=== PATIENT | female | born 1985 | race Caucasian/White ===

== ENCOUNTER → 2016-03-19 | Outpatient (CLI) | payer OTHER ==
[~2016-03-19] MED LIST: ASPI325T28 PO; DOCU100C PO; NEXI40CA PO; PERC5TAB6 PO; TOPA100T8 PO; TYLE325T5 PO; WELL75TA PO
--- NOTE | 2016-03-19 17:18 | REP ---
KUB, TWO VIEWS: HISTORY: Low back pain. Air is present in small and large intestine. There are no air fluid levels or dilated loops of intestine. There is no pneumoperitoneum. A mild amount of stool is present in the colon. There is partial sacralization of the L5 vertebral body. IMPRESSION: 1. Nonspecific bowel gas pattern. 2. There is a mild amount of stool in the colon. Signed by Enrico Sevilla MD 03/20/2016 08:24 A
== END ==
LOC: M LRY 16:35
PROVIDERS: ATTEND Physician Assistant
DX: R10.9 Unspecified abdominal pain (principal)

== ENCOUNTER → 2016-03-19 | Outpatient (REF) | payer OTHER | LOC: M SFHCLERA 17:07 | PROVIDERS: ATTEND Physician Assistant | DX: R10.9 Unspecified abdominal pain (principal) ==

== ENCOUNTER → 2016-04-08 | Outpatient (CLI) | payer OTHER ==
[~2016-04-08] MED LIST changes: +E-Z PAQUE 60% w/v SUSP 355ML BOTTLE As Ordered ONE; +E-Z-GAS II EFFERVESCENT PACKET (SODIUM BICARB./CITRIC ACID/SIMETHICONE) As Ordered ONE; +E-Z-HD 98% w/w 340GM SUSP BTL As Ordered ONE
--- NOTE | 2016-04-09 07:11 | REP ---
UPPER GI, AIR CONTRAST, AND SMALL BOWEL FOLLOW THROUGH: The procedure was performed under the direct supervision of Dr. Coronel. The images were reviewed with Dr. Coronel. A safety trainer film shows no organomegaly or pathological masses. The intestinal gas pattern is nonspecific. There is a transitional lumbosacral junction. Liquid barium and gas producing granules were given in the erect position as well as liquid barium in the prone oblique position in order to perform a double contrast upper GI examination. Additionally, liquid barium was given at the end of the examination in order to perform a small bowel follow through. The oral and pharyngeal stages of deglutition are unremarkable. Esophageal transport is prompt and efficient and there is no esophagitis, stricture, mucosal ring or hiatal hernia. There is full column gastroesophageal reflux demonstrated to the level of the thoracic inlet. The stomach hernandez are normally outlined. The rugal folds are smooth and regular. There is no gastritis, neoplasm or ulcer disease. The duodenal hernandez are normally outlined. The mucosal folds are smooth and regular. There is no C-loop identified. All of the small bowel lies on the right side within the abdomen which likely represents intestinal non-rotation. The barium column was followed through the small bowel to the level of the terminal ileum. Small bowel transit time is approximately 1 hour. Images demonstrate all of the small bowel to lie on the right side of the abdomen with the large bowel on the left side of the abdomen. The cecum lies in the left lower quadrant. These findings likely represent intestinal non-rotation. During palpation, all loops are freely movable and pliable. There are no fixed or angulated loops. Small bowel mucosal pattern is normal in caliber. There is no transition to suggest a partial small bowel obstruction. Spot filming of the terminal ileum shows it to be unremarkable. IMPRESSION: 1. There is full column gastroesophageal reflux demonstrated to the level of the thoracic inlet. 2. All of the small bowel lies on the right side of the abdomen and the large bowel lies on the left side of the abdomen. These findings are consistent with intestinal non-rotation. The small bowel is otherwise unremarkable. 2 minutes and 13 seconds of fluoroscopy time was utilized for this procedure. Reviewed by REYNALDO Myrick 04/09/2016 04:09 PEdited and Signed by Donis Coronel MD 04/09/2016 05:02 P
== END ==
LOC: M RAD 08:34
PROVIDERS: ATTEND Surgery
DX: R10.9 Unspecified abdominal pain (principal); R19.7 Diarrhea, unspecified

== ENCOUNTER → 2016-04-16 | Outpatient (CLI) | payer OTHER ==
[~2016-04-16] MED LIST changes: +ADDE30CA PO; +ADDE5CAP PO; -E-Z PAQUE 60% w/v SUSP 355ML BOTTLE As Ordered ONE; -E-Z-GAS II EFFERVESCENT PACKET (SODIUM BICARB./CITRIC ACID/SIMETHICONE) As Ordered ONE; -E-Z-HD 98% w/w 340GM SUSP BTL As Ordered ONE; +LIDOCAINE 2% INJ 100 MG/5 ML SDV (FOR ANES.) As Ordered ONE; +NAPR250T2 PO; +NS 1,000 ML IV SCH; +PROPOFOL 200 MG/20 ML VIAL As Ordered ONE
--- NOTE | 2016-04-16 10:38 | ROOR ---
Patient Name: Nevaeh Peng Procedure Date: 04/16/2016 10:19 AM Date of : 1985 Age: 30 Room: [facility] Gender: Female Note Status: Finalized Procedure: Upper GI endoscopy Indications: Epigastric abdominal pain, Nausea with vomiting Providers: Dutch Colón Jr, MD Referring MD: BENNETT GUAJARDO MD Requesting Provider: Medicines: Propofol per Anesthesia Complications: No immediate complications. Procedure: Pre-Anesthesia Assessment: - Prior to the procedure, a History and Physical was performed, and patient medications and allergies were reviewed. The patient is competent. The risks and benefits of the procedure and the sedation options and risks were discussed with the patient. All questions were answered and informed consent was obtained. Patient identification and proposed procedure were verified by the physician and the nurse in the pre-procedure area and in the procedure room. Mental Status Examination: alert and oriented. Airway Examination: normal oropharyngeal airway and neck mobility. Respiratory Examination: clear to auscultation. CV Examination: normal. ASA Grade Assessment: II - A patient with mild systemic disease. After reviewing the risks and benefits, the patient was deemed in satisfactory condition to undergo the procedure. The anesthesia plan was to use moderate sedation / analgesia (conscious sedation). Immediately prior to administration of medications, the patient was re-assessed for adequacy to receive sedatives. The heart rate, respiratory rate, oxygen saturations, blood pressure, adequacy of pulmonary ventilation, and response to care were monitored throughout the procedure. The physical status of the patient was re-assessed after the procedure. The Endoscope was introduced through the mouth, and advanced to the second part of duodenum. The upper GI endoscopy was accomplished without difficulty. The patient tolerated the procedure well. Findings: The upper third of the esophagus, middle third of the esophagus and lower third of the esophagus were normal. A small hiatal hernia was present. Diffuse moderate inflammation characterized by congestion (edema), erythema, friability and granularity was found in the gastric fundus, in the gastric body, in the gastric antrum and in the prepyloric region of the stomach. Biopsies were taken with a cold forceps for histology. Diffuse mildly erythematous mucosa without bleeding was found in the gastric body. The duodenal bulb, first portion of the duodenum and second portion of the duodenum were normal. Biopsies for histology were taken with a cold forceps for evaluation of celiac disease. Impression: - Normal upper third of esophagus, middle third of esophagus and lower third of esophagus. - Small hiatal hernia. - Gastritis. Biopsied. - Erythematous mucosa in the gastric body. - Normal duodenal bulb, first portion of the duodenum and second portion of the duodenum. Biopsied. Recommendation: - Discharge patient to home (ambulatory). - Return to my office in 2 weeks. Dutch Colón MD Dutch Colón Jr, MD 04/16/2016 10:38:04 AM This report has been signed electronically. Number of Addenda: 0 Note Initiated On: 04/16/2016 10:19 AM Estimated Blood Loss: Estimated blood loss: none.
--- NOTE | 2016-04-16 10:58 | ROOR ---
Patient Name: Nevaeh Peng Procedure Date: 04/16/2016 10:20 AM Date of : 1985 Age: 30 Room: [facility] Gender: Female Note Status: Finalized Procedure: Colonoscopy Indications: Generalized abdominal pain, Chronic diarrhea Providers: Dutch Colón Jr, MD Referring MD: BENNETT GUAJARDO MD Requesting Provider: Medicines: Propofol per Anesthesia Complications: No immediate complications. Procedure: Pre-Anesthesia Assessment: - Prior to the procedure, a History and Physical was performed, and patient medications and allergies were reviewed. The patient is competent. The risks and benefits of the procedure and the sedation options and risks were discussed with the patient. All questions were answered and informed consent was obtained. Patient identification and proposed procedure were verified by the physician and the nurse in the pre-procedure area and in the procedure room. Mental Status Examination: alert and oriented. Airway Examination: normal oropharyngeal airway and neck mobility. Respiratory Examination: clear to auscultation. CV Examination: normal. ASA Grade Assessment: II - A patient with mild systemic disease. After reviewing the risks and benefits, the patient was deemed in satisfactory condition to undergo the procedure. The anesthesia plan was to use moderate sedation / analgesia (conscious sedation). Immediately prior to administration of medications, the patient was re-assessed for adequacy to receive sedatives. The heart rate, respiratory rate, oxygen saturations, blood pressure, adequacy of pulmonary ventilation, and response to care were monitored throughout the procedure. The physical status of the patient was re-assessed after the procedure. The Colonoscope was introduced through the anus and advanced to the terminal ileum. The colonoscopy was performed without difficulty. The patient tolerated the procedure well. The quality of the bowel preparation was adequate and excellent. Findings: The perianal and digital rectal examinations were normal. Pertinent negatives include normal sphincter tone, no palpable rectal lesions and no anal lesion or abnormality was detected. The rectum, recto-sigmoid colon, sigmoid colon, descending colon, transverse colon, ascending colon, cecum, appendiceal orifice and ileocecal valve appeared normal. Biopsies for histology were taken with a cold forceps from the right colon, transverse colon, descending colon and sigmoid colon for evaluation of microscopic colitis. The ileum appeared normal. Biopsies were taken with a cold forceps for histology. Impression: - The rectum, recto-sigmoid colon, sigmoid colon, descending colon, transverse colon, ascending colon, cecum, appendiceal orifice and ileocecal valve are normal. Biopsied. - The terminal ileum is normal. Biopsied. Recommendation: - Discharge patient to home (ambulatory). - Return to my office in 2 weeks. Dutch Colón MD Dutch Colón Jr, MD 04/16/2016 10:58:11 AM This report has been signed electronically. Number of Addenda: 0 Note Initiated On: 04/16/2016 10:20 AM Estimated Blood Loss: Estimated blood loss: none.
[2016-04-16 11:25] VITALS: BP 117/68
== END | disposition home or self-care (01) ==
LOC: M OPP 09:41
PROVIDERS: ATTEND Surgery
DX: R10.84 Generalized abdominal pain (principal); R19.7 Diarrhea, unspecified; R10.11 Right upper quadrant pain; R11.2 Nausea with vomiting, unspecified; K31.89 Other diseases of stomach and duodenum; K29.70 Gastritis, unspecified, without bleeding; K44.9 Diaphragmatic hernia without obstruction or gangrene; G43.909 Migraine, unspecified, not intractable, without status migrainosus; Z79.899 Other long term (current) drug therapy

== ENCOUNTER → 2020-06-15 | Outpatient (REF) | payer OTHER ==
[~2020-06-15] MED LIST changes: -ADDE30CA PO; +ADDE30CA3 PO; +ASPI-527 PO; -ASPI325T28 PO; -DOCU100C PO; +DOCU100C16 PO; -LIDOCAINE 2% INJ 100 MG/5 ML SDV (FOR ANES.) As Ordered ONE; +NAPR-849 PO; -NAPR250T2 PO; -NS 1,000 ML IV SCH; +PERC5TAB12 PO; -PERC5TAB6 PO; -PROPOFOL 200 MG/20 ML VIAL As Ordered ONE; +TOPA100T12 PO; -TOPA100T8 PO
== END ==
LOC: M WUC 15:03
PROVIDERS: ATTEND Physician Assistant
DX: J00 Acute nasopharyngitis [common cold] (principal)